=== PATIENT | male | born 1975 | race Caucasian/White ===

== ENCOUNTER 2018-08-30 08:48 | Emergency (ER) | payer SELFPAY ==
[~2018-08-30] VITALS: Ht 167.6 cm; Wt 81.0 kg
[2018-08-30 08:57] VITALS: BP 129/89
== END 2018-08-30 12:45 | disposition home or self-care (01) ==
LOC: ER 08:48
DX: M79.675 Pain in left toe(s) (principal); F17.200 Nicotine dependence, unspecified, uncomplicated; F12.10 Cannabis abuse, uncomplicated; W56.8 Contact with other nonvenomous marine animals
CPT/HCPCS: 99281; 99283